=== PATIENT | female | born 1990 | race Hispanic/Latino ===

== ENCOUNTER 2019-06-13 00:18 | Emergency (ER) | payer SELFPAY ==
[2019-06-13] MEDS ORDERED: Acetaminophen/Codeine 30-300mg Tablet ONE (01:17)
== END 2019-06-13 01:23 | disposition home or self-care (01) ==
LOC: ERS 00:18
DX: K03.81 Cracked tooth (principal); K02.9 Dental caries, unspecified
CPT/HCPCS: 99282

== ENCOUNTER 2021-07-23 18:12 | Emergency (ER) | payer OTHER, SELFPAY ==
[2021-07-24 07:51] LABS: SARS-CoV-2 PCR by NAA DETECTED (NotDetected)
== END 2021-07-23 19:35 | disposition home or self-care (01) ==
LOC: ERS 18:12
DX: U07.1 COVID-19 (principal)
CPT/HCPCS: 99283; U0003; U0005